=== PATIENT | male | born 1960 | race Caucasian/White ===

== ENCOUNTER 2021-02-25 16:38 | Inpatient (IN) | payer BC ==
--- NOTE | 2021-02-25 17:03 | ED ---
General Adult HPI - General Chief complaint: Abdominal Pain Stated complaint: kidney stone Time Seen by Provider: 02/25/21 17:02 Source: patient Mode of arrival: ambulatory Limitations: no limitations - History of Present Illness Initial comments: Patient presents to the ED complaining of having left flank pain radiating to the left side of his abdomen since yesterday. Patient states that his pain has become worse today, and he states that he has had associated hematuria, nausea and vomiting today. Patient states that he has a history of renal stones, but he has not passed a stone in over 20 years. Patient denies trauma or injury, fever or chills, headache, focal neuro deficit, chest pain, dyspnea, dizziness, diarrhea or constipation, bloody or melanotic stool, hematemesis, dysuria, urinary frequency, leg pain/numbness/weakness, incontinence or urinary retention, or any other symptoms or complaints. Patient states that he took a dose of Excedrin prior to coming to the ED today. - Related Data Home Medications Medication Instructions Recorded Confirmed No Known Home Medications 02/25/21 02/25/21 Allergies Allergy/AdvReac Type Severity Reaction Status Date / Time No Known Allergies Allergy Verified 02/25/21 18:18 Review of Systems ROS Statement: Those systems with pertinent positive or pertinent negative responses have been documented in the HPI. ROS Other: All systems not noted in ROS Statement are negative. Past Medical History Additional Past Medical History / Comment(s): kidney stones History of Any Multi-Drug Resistant Organisms: None Reported Past Surgical History: No Surgical Hx Reported Past Psychological History: No Psychological Hx Reported Smoking Status: Never smoker Past Alcohol Use History: None Reported Past Drug Use History: None Reported General Exam Limitations: no limitations General appearance: alert Head exam: Present: atraumatic, normocephalic Eye exam: Present: normal appearance, EOMI ENT exam: Present: mucous membranes moist Neck exam: Present: other (Trachea is in midline) Respiratory exam: Present: normal lung sounds bilaterally. Absent: respiratory distress, wheezes, rales, rhonchi, stridor Cardiovascular Exam: Present: regular rate, normal rhythm, normal heart sounds, other (Normal radial pulses bilaterally) GI/Abdominal exam: Present: soft. Absent: distended, tenderness, guarding Extremities exam: Absent: tenderness, pedal edema, calf tenderness Back exam: Absent: tenderness, CVA tenderness (R), CVA tenderness (L) Neurological exam: Present: alert, oriented X3, other (Patient has no evidence of lower extremity neurological deficit or saddle anesthesia on examination). Absent: motor sensory deficit Psychiatric exam: Present: normal affect, normal mood Skin exam: Present: warm, dry, intact, normal color Course Vital Signs 02/25/21 02/25/21 17:00 18:53 Temperature 98.0 F Pulse Rate 66 68 Respiratory 22 14 Rate Blood Pressure 189/82 168/85 O2 Sat by Pulse 99 98 Oximetry - Reevaluation(s) Reevaluation #1: 02/25/21 20:01 Case, H&P, test results and ED management thus far were discussed with Dr. Hollins (urologist). He accepts hospital admission. He asks to make the patient NPO after midnight. He has no further recommendations at this time. 02/25/21 20:04 Patient states that his pain has improved with ED treatment. Patient denies development of any new pain or symptoms while in the ED. Patient is aware of his test results and my discussion with Dr. Hollins as above. Patient agrees with hospital admission at this time. Medical Decision Making - Medical Decision Making Patient has a symptomatic left ureteral stone that is causing him significant discomfort. Patient is afebrile and without leukocytosis. Patient's UA is unremarkable. Will admit the patient to the hospital for management of his obstructing left ureteral stone. Dr. Hollins has accepted hospital admission. - Lab Data Result diagrams: 02/25/21 17:20 02/25/21 17:20 Lab Results 02/25/21 02/25/21 02/25/21 Range/Units 17:20 17:20 17:20 WBC 11.1 H (3.8-10.6) k/uL RBC 4.75 (4.30-5.90) m/uL Hgb 14.4 (13.0-17.5) gm/dL Hct 41.7 (39.0-53.0) % MCV 87.8 (80.0-100.0) fL MCH 30.4 (25.0-35.0) pg MCHC 34.6 (31.0-37.0) g/dL RDW 13.0 (11.5-15.5) % Plt Count 196 (150-450) k/uL MPV 6.7 Neutrophils % 75 % Lymphocytes % 16 % Monocytes % 7 % Eosinophils % 1 % Basophils % 0 % Neutrophils # 8.3 H (1.3-7.7) k/uL Lymphocytes # 1.7 (1.0-4.8) k/uL Monocytes # 0.7 (0-1.0) k/uL Eosinophils # 0.1 (0-0.7) k/uL Basophils # 0.0 (0-0.2) k/uL Sodium 141 (137-145) mmol/L Potassium 4.5 (3.5-5.1) mmol/L Chloride 107 (98-107) mmol/L Carbon Dioxide 24 (22-30) mmol/L Anion Gap 10 mmol/L BUN 36 H (9-20) mg/dL Creatinine 2.26 H (0.66-1.25) mg/dL Est GFR (CKD-EPI)AfAm 35 (>60 ml/min/1.73 sqM) Est GFR (CKD-EPI)NonAf 30 (>60 ml/min/1.73 sqM) Glucose 104 H (74-99) mg/dL Calcium 9.1 (8.4-10.2) mg/dL Total Bilirubin 0.5 (0.2-1.3) mg/dL AST 27 (17-59) U/L ALT 20 (4-49) U/L Alkaline Phosphatase 80 (38-126) U/L Total Protein 7.1 (6.3-8.2) g/dL Albumin 4.3 (3.5-5.0) g/dL Lipase 65 (23-300) U/L Urine Color Yellow Urine Appearance Clear (Clear) Urine pH 5.0 (5.0-8.0) Ur Specific [place] 1.025 (1.001-1.035) Urine Protein Negative (Negative) Urine Glucose (UA) Negative (Negative) Urine Ketones Negative (Negative) Urine Blood Negative (Negative) Urine Nitrite Negative (Negative) Urine Bilirubin Negative (Negative) Urine Urobilinogen <2.0 (<2.0) mg/dL Ur Leukocyte Esterase Negative (Negative) - Radiology Data Radiology results: report reviewed (Noncontrast CT abdomen/pelvis: Obstructing calculus (6 mm) proximal left ureter with hydroureter and perinephric edema) Disposition Clinical Impression: Renal insufficiency, Ureterolithiasis Disposition: ADMITTED IP TO THIS HOSP Condition: Stable Is patient prescribed a controlled substance at d/c from ED?: No Referrals: Fran Holt MD [Primary Care Provider] - 1-2 days Time of Disposition: 20:02
[2021-02-25] MEDS ORDERED: ONDANSETRON 4 MG/2 ML VIAL IVP STA (17:06)
[2021-02-25] MEDS ORDERED: HYDROmorphone 1 MG/ML 1 ML SYRINGE IVP STA (17:06)
[2021-02-25] MEDS ORDERED: SODIUM CHLORIDE 0.9% 1,000 ML IV STA (17:06)
[2021-02-25 17:30] LABS: Basophils % (A) 0 %; Eosinophils # (A) 0.1 k/uL (0-0.7); Eosinophils % (A) 1 %; HCT 41.7 % (39.0-53.0); HGB 14.4 gm/dL (13.0-17.5); Lymphocytes # (A) 1.7 k/uL (1.0-4.8); Lymphocytes % (A) 16 %; MCH 30.4 pg (25.0-35.0); MCHC 34.6 g/dL (31.0-37.0); MCV 87.8 fL (80.0-100.0); Mean Platelet Volume 6.7; Monocytes # (A) 0.7 k/uL (0-1.0); Monocytes % (A) 7 %; Neutrophils # (A) 8.3 k/uL (1.3-7.7); Neutrophils % (A) 75 %; Platelet Count 196 k/uL (150-450); RBC 4.75 m/uL (4.30-5.90); WBC 11.1 k/uL (3.8-10.6)
[2021-02-25 17:38] LABS: Appearance,Urine Clear (Clear); Bilirubin,Urine Negative (Negative); Blood,Urine Negative (Negative); Color,Urine Yellow; Glucose,Urine (UA) Negative (Negative); Ketones,Urine Negative (Negative); Leukocyte Esterase,Urine Negative (Negative); Nitrite,Urine Negative (Negative); Protein,Urine Negative (Negative); Specific Gravity,Urine 1.025 (1.001-1.035); Urobilinogen,Urine <2.0 mg/dL (<2.0)
[2021-02-25 17:40] LABS: Albumin 4.3 g/dL (3.5-5.0); Calcium 9.1 mg/dL (8.4-10.2); Potassium 4.5 mmol/L (3.5-5.1); Total Bilirubin 0.5 mg/dL (0.2-1.3); Total Protein 7.1 g/dL (6.3-8.2)
--- NOTE | 2021-02-25 18:38 | CT ---
EXAMINATION TYPE: CT abdomen pelvis wo con DATE OF EXAM: 02/25/2021 COMPARISON: None HISTORY: left flank pain CT DLP: 465.2 mGycm Automated exposure control for dose reduction was used. Images obtained from the diaphragm to the floor the pelvis with no contrast. Lung bases are clear of consolidation. There is no pleural effusion. There is no pericardial effusion . Liver spleen stomach pancreas gallbladder appear normal. The bile ducts are not dilated. There is no adrenal mass. There is left-sided hydronephrosis and perinephric edema. There is a 6 mm o bstructing calculus proximal left ureter with periureteral edema. There are multiple bilateral renal calculi that measure up to almost 10 mm. There is no hydronephrosis on the right side. There is no re troperitoneal adenopathy. The bladder distends smoothly. There is mild prostate calcification. There is no inguinal hernia. There is no free fluid in the pelvis. There are multiple sigmoid diverticula. There is no diverticulitis. There is no mesenteric edema. There is no ascites or free air. There is no evidence of a bowel obstru ction. There is some retained fecal material in the large bowel and also in the distal ileum. Appendi x is not clearly seen. There is no evidence of appendicitis. The lumbar vertebra have normal alignment. There is narrowing of L5-S1 disc space. There is no compre ssion fracture. Bony pelvis is intact. The hip joints are intact. There is no hip dysplasia. IMPRESSION: Obstructing calculus proximal left ureter with hydronephrosis and perinephric edema. Numerous bilateral renal calculi. Mild sigmoid diverticulosis.
[2021-02-25] MEDS ORDERED: HYDROmorphone 0.5 MG/0.5 ML SYRINGE IVP STA ×2 (19:55)
[2021-02-25] MEDS ORDERED: HYDROmorphone 0.5 MG/0.5 ML SYRINGE IVP PRN (20:02)
[2021-02-25] MEDS ORDERED: NALOXONE 0.4 MG/ML 1 ML VIAL IV PRN (20:02)
[2021-02-25] MEDS ORDERED: ONDANSETRON 4 MG/2 ML VIAL IVP PRN (20:02)
[2021-02-25] MEDS: HYDROmorphone 0.5 MG/0.5 ML SYRINGE IVP PRN (22:56)
[2021-02-26] MEDS: HYDROmorphone 0.5 MG/0.5 ML SYRINGE IVP PRN ×3 (01:46→07:15)
[2021-02-26 08:55] LABS: African American GFR (CKD) 50 (>60 ml/min/1.73 sqM); Anion Gap 6 mmol/L; Blood Urea Nitrogen 28 mg/dL (9-20); Calcium 8.8 mg/dL (8.4-10.2); Carbon Dioxide 24 mmol/L (22-30); Chloride 107 mmol/L (98-107); Glucose 112 mg/dL (74-99); Non-African American GFR(CKD) 43 (>60 ml/min/1.73 sqM); Potassium 4.8 mmol/L (3.5-5.1); Sodium 137 mmol/L (137-145)
--- NOTE | 2021-02-26 09:24 | P.GSHP ---
History of Present Illness H&P Date: 02/26/21 Chief Complaint: Left renal colic The patient is a 60-year-old white male with a history of urolithiasis in the remote past. Beginning 02/24/2021 he experienced left flank pain radiating to the left abdomen. He has also noted gross hematuria, nausea, and vomiting. Computed tomography scan shows mild left hydronephrosis due to a 6 mm left proximal ureteral calculus. 4 additional small left renal calculi are seen, all in the upper-mid pole. There are 3 right renal calculi, the largest being a 1 cm right lower pole renal calculus. - Gastrointestinal Gastrointestinal: Reports nausea, Reports vomiting - Genitourinary (Male) Genitourinary: Reports flank pain, Reports hematuria, Reports kidney stones Past Medical History Additional Past Medical History / Comment(s): kidney stones History of Any Multi-Drug Resistant Organisms: None Reported Past Surgical History: No Surgical Hx Reported Past Psychological History: No Psychological Hx Reported Smoking Status: Never smoker Past Alcohol Use History: None Reported Past Drug Use History: None Reported Medications and Allergies Home Medications Medication Instructions Recorded Confirmed Type No Known Home Medications 02/25/21 02/25/21 History Allergies Allergy/AdvReac Type Severity Reaction Status Date / Time No Known Allergies Allergy Verified 02/25/21 18:18 Surgical - Exam Vital Signs Temp Pulse Resp BP Pulse Ox 98.0 F 66 22 189/82 99 02/25/21 17:00 02/25/21 17:00 02/25/21 17:00 02/25/21 17:00 02/25/21 17:00 - General well developed, well nourished, no distress - Neck no masses, trachea midline - Respiratory normal respiratory effort - Abdomen Abdomen: soft, tender (Mild left-sided tenderness), no masses, no guarding, no rigid, no rebound - Genitourinary normal penis with no external lesions, testicles non-tender - Psychiatric oriented to time, oriented to person, oriented to place, speech is normal, memory intact Results - Labs 02/25/21 17:20 02/26/21 07:57 Abnormal Lab Results - Last 24 Hours (Table) 02/25/21 02/25/21 Range/Units 17:20 17:20 WBC 11.1 H (3.8-10.6) k/uL Neutrophils # 8.3 H (1.3-7.7) k/uL BUN 36 H (9-20) mg/dL Creatinine 2.26 H (0.66-1.25) mg/dL Glucose 104 H (74-99) mg/dL Diabetes panel 02/25/21 Range/Units 17:20 Sodium 141 (137-145) mmol/L Potassium 4.5 (3.5-5.1) mmol/L Chloride 107 (98-107) mmol/L Carbon Dioxide 24 (22-30) mmol/L BUN 36 H (9-20) mg/dL Creatinine 2.26 H (0.66-1.25) mg/dL Glucose 104 H (74-99) mg/dL Calcium 9.1 (8.4-10.2) mg/dL AST 27 (17-59) U/L ALT 20 (4-49) U/L Alkaline Phosphatase 80 (38-126) U/L Total Protein 7.1 (6.3-8.2) g/dL Albumin 4.3 (3.5-5.0) g/dL Calcium panel 02/25/21 Range/Units 17:20 Calcium 9.1 (8.4-10.2) mg/dL Albumin 4.3 (3.5-5.0) g/dL Pituitary panel 02/25/21 Range/Units 17:20 Sodium 141 (137-145) mmol/L Potassium 4.5 (3.5-5.1) mmol/L Chloride 107 (98-107) mmol/L Carbon Dioxide 24 (22-30) mmol/L BUN 36 H (9-20) mg/dL Creatinine 2.26 H (0.66-1.25) mg/dL Glucose 104 H (74-99) mg/dL Calcium 9.1 (8.4-10.2) mg/dL Adrenal panel 02/25/21 Range/Units 17:20 Sodium 141 (137-145) mmol/L Potassium 4.5 (3.5-5.1) mmol/L Chloride 107 (98-107) mmol/L Carbon Dioxide 24 (22-30) mmol/L BUN 36 H (9-20) mg/dL Creatinine 2.26 H (0.66-1.25) mg/dL Glucose 104 H (74-99) mg/dL Calcium 9.1 (8.4-10.2) mg/dL Total Bilirubin 0.5 (0.2-1.3) mg/dL AST 27 (17-59) U/L ALT 20 (4-49) U/L Alkaline Phosphatase 80 (38-126) U/L Total Protein 7.1 (6.3-8.2) g/dL Albumin 4.3 (3.5-5.0) g/dL - Imaging CT scan - abdomen: report reviewed, image reviewed Assessment and Plan (1) Ureterolithiasis Current Visit: Yes Status: Acute Code(s): N20.1 - CALCULUS OF URETER SNOMED Code(s): 91209206 (2) Hydronephrosis with renal and ureteral calculous obstruction Current Visit: Yes Status: Acute Code(s): N13.2 - HYDRONEPHROSIS WITH RENAL AND URETERAL CALCULOUS OBSTRUCTION SNOMED Code(s): 159207260 (3) Calculus of kidney Current Visit: Yes Status: Acute Code(s): N20.0 - CALCULUS OF KIDNEY SNOMED Code(s): 71851311 Plan: The patient is a 60-year-old white male with a history of urolithiasis. He now presents with left renal colic due to a 6 mm left proximal ureteral calculus, causing mild left hydronephrosis. He was admitted for management of intractable pain. I intend to perform cystoscopy with left ureteral stent insertion to relieve the obstruction. Arrangements will then be made for him to electively undergo removal of the left ureteral calculus. The rationale for this approach has been reviewed in detail with the patient. Potential risks have been explained, which include anesthesia, infection, inability to successfully place a stent, and ureteral injury. He will subsequently be discharged home, and arrangements will be made for him to undergo cystoscopy, left ureteral stent removal, left ureteroscopy with laser lithotripsy in 2-3 weeks. Time with Patient: Greater than 30
[2021-02-26] MEDS ORDERED: LACTATED RINGERS 1,000 ML IV ONE (09:36)
[2021-02-26 09:42] LABS: Basophils % (A) 0 %; Eosinophils % (A) 0 %; HCT 40.2 % (39.0-53.0); HGB 13.1 gm/dL (13.0-17.5); Lymphocytes # (A) 0.9 k/uL (1.0-4.8); Lymphocytes % (A) 10 %; MCH 29.1 pg (25.0-35.0); MCHC 32.7 g/dL (31.0-37.0); MCV 89.2 fL (80.0-100.0); Mean Platelet Volume 7.1; Monocytes # (A) 0.5 k/uL (0-1.0); Monocytes % (A) 5 %; Neutrophils # (A) 7.5 k/uL (1.3-7.7); Neutrophils % (A) 83 %; Platelet Count 171 k/uL (150-450); RBC 4.51 m/uL (4.30-5.90); RDW 13.2 % (11.5-15.5); WBC 9.1 k/uL (3.8-10.6)
[2021-02-26] MEDS ORDERED: PROPOFOL 10 MG/ML 20 ML VIAL IV ONE (09:52)
[2021-02-26] MEDS ORDERED: LIDOCAINE 1% INJ 10MG/ML (20 ML MDV) ONE (09:52)
[2021-02-26] MEDS ORDERED: MIDAZOLAM 2 MG/2 ML VIAL ONE (09:52)
[2021-02-26] MEDS ORDERED: DEXAMETHASONE SOD PHOSPHATE 10 MG/ML 1 ML VIAL ONE (09:52)
[2021-02-26] MEDS ORDERED: ONDANSETRON 4 MG/2 ML VIAL ONE (09:52)
[2021-02-26] MEDS ORDERED: fentaNYL (PF) 50 MCG/ML 2 ML AMP ONE (09:52)
[2021-02-26] MEDS ORDERED: SUCCINYLCHOLINE CHLORIDE 100 MG/5 ML SYR IV ONE (09:52)
[2021-02-26] MEDS ORDERED: HYDROcodone/APAP 5-325MG 1 EACH TAB PO PRN ×2 (10:37)
--- NOTE | 2021-02-26 10:41 | P.OP ---
Date of Procedure: 02/26/21 Preoperative Diagnosis: Left ureteral calculus Postoperative Diagnosis: Same Procedure(s) Performed: Cystoscopy, left ureteral stent insertion Anesthesia: APARNA Surgeon: Anthony Hollins Estimated Blood Loss (ml): 0 IV fluids (ml): 100 Pathology: none sent Condition: stable Disposition: PACU Indications for Procedure: The patient is a 60-year-old white male with a history of urolithiasis in the remote past. Beginning 02/24/2021 he experienced left flank pain radiating to the left abdomen. He has also noted gross hematuria, nausea, and vomiting. Computed tomography scan shows mild left hydronephrosis due to a 6 mm left proximal ureteral calculus. 4 additional small left renal calculi are seen, all in the upper-mid pole. There are 3 right renal calculi, the largest being a 1 cm right lower pole renal calculus. Operative Findings: Successful stent placement. Description of Procedure: The patient was taken to the operating room and placed in the dorsolithotomy position, with legs supported in Dre stirrups. The external genitalia was prepped and draped sterilely. The 30 lens was used to introduce the 22-Argentine Stortz cystoscopic sheath through the urethra and into the bladder under direct vision. The prostatic urethra showed evidence of mild lateral lobe enlargement. The bladder was examined in its entirety. Both ureteral orifices were of normal anatomic location and configuration, and clear urine effluxed from both. No tumors or foreign bodies were seen. An angle-tip 0.035 inch Glidewire was passed through the cystoscope. The left ureteral orifice was cannulated, and the Glidewire was slowly advanced beyond the calculus and up to the renal pelvis. A 24 cm, 6-Argentine double-J ureteral stent was placed over the wire. Proper stent positioning was verified fluoroscopically and endoscopically. There was evidence of a "hydronephrotic esteban", as clear urine drained through the stent. The bladder was emptied and the cystoscope removed. The patient tolerated the procedure well was taken to the recovery room in stable condition.
[2021-02-26] MEDS: DEXTROSE 5%-0.45% NACL 1,000 ML IV SCH (15:46)
[2021-02-27] MEDS: DEXTROSE 5%-0.45% NACL 1,000 ML IV SCH (05:17)
[2021-02-27 07:39] VITALS: BP 142/75; PULSE 65; RESP 17; TEMP 98.2
--- NOTE | 2021-02-27 10:19 | FL ---
Fluoroscopy HISTORY: Stent placement 9 seconds fluoroscopy time supplied to the referring clinician. 1 intraoperative C-arm images docume nt the procedure. See dictated report from urology.
--- NOTE | 2021-02-27 11:30 | P.DS ---
Providers Date of admission: 02/25/21 20:02 Expected date of discharge: 02/27/21 Attending physician: Anthony Hollins Primary care physician: Fran Holt - Discharge Diagnosis(es) (1) Ureterolithiasis Current Visit: Yes Status: Acute (2) Hydronephrosis with renal and ureteral calculous obstruction Current Visit: Yes Status: Acute (3) Calculus of kidney Current Visit: Yes Status: Acute Hospital Course: Upon admission, the patient was treated with parenteral analgesics and antibiotics. He underwent left ureteral stent insertion on 02/26/2021. He felt considerably better following that procedure. At the time of discharge, he was quite comfortable. Procedures: Cystoscopy, left ureteral stent insertion on 02/26/2021 Patient Condition at Discharge: Good Plan - Discharge Summary New Discharge Prescriptions: No Action No Known Home Medications Discharge Medication List No Known Home Medications 02/25/21 [History] Follow up Appointment(s)/Referral(s): Fran Holt MD [Primary Care Provider] - 1-2 days Activity/Diet/Wound Care/Special Instructions: Diet as tolerated. Activity as tolerated. Dr. Hollins' office will contact patient regarding follow-up. Discharge Disposition: HOME SELF-CARE
== END 2021-02-27 12:46 | disposition home or self-care (01) | DRG 661 ==
LOC: EC 16:38 → 4SSUR 20:02
PROVIDERS: ADMIT Urology; ATTEND Urology
PROC: 0T9B80Z Drainage of Bladder with Drainage Device, Via Natural or Artificial Opening Endoscopic (ICD-10-PCS; 2021-02-26)
PROC: 0T778DZ Dilation of Left Ureter with Intraluminal Device, Via Natural or Artificial Opening Endoscopic (ICD-10-PCS; principal; 2021-02-26 09:00)
DX: N13.2 Hydronephrosis with renal and ureteral calculous obstruction (principal); R31.0 Gross hematuria; Z87.442 Personal history of urinary calculi
CPT/HCPCS: 36415; 74176; 80048; 80053; 81003; 83690; 85025; 96374; 96375; 99285

== ENCOUNTER 2021-03-11 07:02 | Day surgery (SDC) | payer BC ==
--- NOTE | 2021-03-03 17:22 | P.GSHP ---
History of Present Illness H&P Date: 03/03/21 Chief Complaint: Left renal colic The patient is a 60-year-old white male with a history of urolithiasis in the remote past. Beginning 02/24/2021 he experienced left flank pain radiating to the left abdomen. He has also noted gross hematuria, nausea, and vomiting. CT scan showed mild left hydronephrosis due to a 6 mm left proximal ureteral calculus. 4 additional small left renal calculi were seen, all in the upper-mid pole. There are 3 right renal calculi, the largest being a 1 cm right lower pole renal calculus. He underwent left ureteral stent insertion on 02/26/2021. He now comes for cystoscopy, left ureteral stent removal, left ureteroscopy with Holmium laser lithotripsy and possible stone basketing. - Gastrointestinal Gastrointestinal: Reports nausea, Reports vomiting - Genitourinary (Male) Genitourinary: Reports flank pain, Reports hematuria, Reports kidney stones Past Medical History Additional Past Medical History / Comment(s): kidney stones History of Any Multi-Drug Resistant Organisms: None Reported Past Surgical History: No Surgical Hx Reported Past Psychological History: No Psychological Hx Reported Smoking Status: Never smoker Past Alcohol Use History: None Reported Past Drug Use History: None Reported Medications and Allergies Home Medications Medication Instructions Recorded Confirmed Type No Known Home Medications 02/25/21 02/25/21 History Allergies Allergy/AdvReac Type Severity Reaction Status Date / Time No Known Allergies Allergy Verified 02/25/21 18:18 Surgical - Exam - General well developed, well nourished, no distress - Neck no masses, trachea midline - Respiratory normal respiratory effort - Abdomen Abdomen: soft, non tender, no guarding, no rigid, no rebound - Genitourinary normal penis with no external lesions, testicles non-tender - Psychiatric oriented to time, oriented to person, oriented to place, speech is normal, memory intact Results - Imaging CT scan - abdomen: report reviewed, image reviewed Assessment and Plan (1) Ureterolithiasis Status: Acute Code(s): N20.1 - CALCULUS OF URETER SNOMED Code(s): 09908796 (2) Calculus of kidney Status: Acute Code(s): N20.0 - CALCULUS OF KIDNEY SNOMED Code(s): 93800475 Plan: Cystoscopy, left ureteral stent removal, left ureteroscopy with Holmium laser lithotripsy and possible stone basketing. The procedure has been reviewed in detail with the patient. He has been made aware of potential risks, which inc lude anesthesia, bleeding, infection, and ureteral injury.
[2021-03-09 13:36] VITALS: BMI 24.3
[~2021-03-11 07:02] MED LIST: DEXAMETHASONE SOD PHOSPHATE 4 MG/ML 1 ML VIAL IV ONE; HYDROmorphone 0.5 MG/0.5 ML SYRINGE IVP PRN; LACTATED RINGERS 1,000 ML IV SCH; MIDAZOLAM 2 MG/2 ML VIAL IV PRN; ONDANSETRON 4 MG/2 ML VIAL IVP ONE; SCOPOLAMINE 1.5MG/72HR PATCH TRANSDERM ONE
--- NOTE | 2021-03-11 07:29 | XR ---
EXAMINATION TYPE: XR KUB DATE OF EXAM: 03/11/2021 7:14 AM CLINICAL HISTORY: Kidney stones TECHNIQUE: Single supine KUB image of the abdomen is obtained. COMPARISON: CT 02/25/2021 FINDINGS: Scattered gas is seen in non-distended small bowel loops. Gas and fecal material is seen in non-distended colon. A left ureteral stent is present. Bowel contents obscure the renal shadows. IMPRESSION: A left ureteral stent is present. Bowel contents obscure the renal shadows.
[2021-03-11] MEDS ORDERED: PROPOFOL 10 MG/ML 20 ML VIAL IV ONE (10:52)
[2021-03-11] MEDS ORDERED: KETOROLAC 15 MG/ML 1 ML VIAL ONE (10:52)
[2021-03-11] MEDS ORDERED: fentaNYL (PF) 50 MCG/ML 2 ML AMP ONE (10:52)
[2021-03-11] MEDS ORDERED: LIDOCAINE 1% INJ 10MG/ML (20 ML MDV) ONE (10:52)
[2021-03-11] MEDS ORDERED: MIDAZOLAM 2 MG/2 ML VIAL ONE (10:52)
--- NOTE | 2021-03-11 12:53 | P.OP ---
Date of Procedure: 03/11/21 Preoperative Diagnosis: Left ureteral calculus, left renal calculi Postoperative Diagnosis: Same Procedure(s) Performed: Cystoscopy, left ureteroscopy with Holmium laser lithotripsy and stone basketing, left ureteral stent change Anesthesia: IZAIAHA Surgeon: Anthony Hollins Estimated Blood Loss (ml): 20 IV fluids (ml): 500 Pathology: other (Calculus fragments, sent for chemical analysis) Condition: stable Disposition: PACU Indications for Procedure: The patient is a 60-year-old white male with a history of urolithiasis in the remote past. Beginning 02/24/2021 he experienced left flank pain radiating to the left abdomen. He has also noted gross hematuria, nausea, and vomiting. CT scan showed mild left hydronephrosis due to a 6 mm left proximal ureteral calculus. 4 additional small left renal calculi were seen, all in the upper-mid pole. There are 3 right renal calculi, the largest being a 1 cm right lower pole renal calculus. He underwent left ureteral stent insertion on 02/26/2021. He now comes for cystoscopy, left ureteral stent removal, left ureteroscopy with Holmium laser lithotripsy and possible stone basketing. Operative Findings: Excellent fragmentation of left ureteral calculus and left renal calculi, with fragments successfully basketed. Description of Procedure: The patient was taken to the operating room and placed in the dorsolithotomy position, with legs supported in Dre stirrups. The external genitalia was prepped and draped sterilely. The 30 lens was used to introduce the 21-[place] cystoscopic sheath through the urethra and into the bladder under direct vision. The prostatic urethra showed evidence of mild lateral lobe enlargement. The bladder was examined in its entirety. The distal end of the left ureteral stent was grasped with grasping forceps and removed along with the cystoscope. A 0.038 inch Glidewire was passed through the stent and up to the left renal pelvis. An 11/13-St Lucian ureteral access catheter was passed over the wire, up to the proximal ureter. The flexible ureteroscope was then passed through the ureteral access catheter sheath, up to the stone. The 272 micron Holmium laser probe was passed through the ureteroscope, and lithotripsy was performed. The calculus was very dense, likely composed of calcium oxalate monohydrate. After fragmenting this, the ureteroscope was advanced up to the kidney. Each calyx was examined. Calculi were identified within an upper pole calyx, mid pole calyx, and lower pole calyx. All calculi were fragmented. While fragmenting the lower pole calculus, bleeding occurred which limited visualization. Fortunately, fragmentation of the calculi was complete. A 1.9-St Lucian nitinol basket was used to remove the calculus fragments from the ureter and kidney. They were saved and sent for chemical analysis. By the completion of the procedure, bleeding had essentially subsided. There were several small clots within the renal pelvis and ureter, most of which were removed via basketing. The Glidewire was passed through the ureteral access catheter sheath and up to the left renal pelvis. The ureteral access catheter sheath was removed, and the Glidewire was backloaded into the cystoscope, which was passed into the bladder. A 24 cm, 4.8-St Lucian double-J ureteral stent was placed over the wire. Proper stent positioning was verified fluoroscopically and endoscopically. A string was left attached to the stent, this was secured to the penis using a Tegaderm dressing. The patient tolerated the procedure well and was taken to the recovery room in stable condition. [facility] [place] [facility] [place] Procedure Acuity: Elective Stone Size and Location: 6 mm, left proximal ureter Ureteral Dilation: No Ureteral Access Sheath Used: Yes Stone Sent for Analysis: Yes All Stones/Fragments Were Removed with a Basket: Yes Complications: No Preoperative Antibiotics Given: Yes Stent Placed: Yes If Stent Placed, Was String Left Attached: Yes If Stent Placed, When is it to be Removed: 3-5 days Discharge Medications: None
[2021-03-11 12:54] VITALS: TEMP 97
--- NOTE | 2021-03-11 13:14 | FL ---
Fluoroscopy HISTORY: Cystoscopy and stent placement 19 seconds fluoroscopy time supplied to the referring clinician. 3 intraoperative C-arm images docum ent the procedure. See dictated report from urology.
[2021-03-11] MEDS ORDERED: LACTATED RINGERS 1,000 ML IV ONE (13:28)
[2021-03-11 13:47] VITALS: RESP 18
[2021-03-11 14:28] VITALS: BP 148/75; PULSE 79
== END 2021-03-11 14:45 | disposition home or self-care (01) ==
LOC: OR 07:02
PROVIDERS: ATTEND Urology
DX: N13.2 Hydronephrosis with renal and ureteral calculous obstruction (principal)
CPT/HCPCS: 82365; 74018; 52356; C2625; C1769; J2250; J1100; J2405; J0690; J2001; J3010; J1885; J2704; J1170

== ENCOUNTER → 2022-02-02 | Outpatient (CLI) | payer BC ==
--- NOTE | 2022-02-02 14:20 | XR ---
EXAMINATION TYPE: XR [facility] DATE OF EXAM: 02/02/2022 Comparison: 03/11/2021 Clinical History: 61-year-old male left kidney stone, left flank pain, nausea, N20.0 Calculus of kidn ey Findings: Right-sided renal calculus measuring 1 cm. Possible second upper pole right-sided calculus measuring 4 mm. Previous left-sided ureteral stent has been removed. Mild multilevel degenerative disc disease. Mild degenerative change SI joints. No additional definite suspicious calcification seen. Nonobstruc tive bowel gas pattern. Mild stool burden. Impression: Suggestion of a couple right-sided renal calculi measuring 10 mm and 4 mm.
== END | disposition home or self-care (01) ==
LOC: RADXRMAIN 09:11
PROVIDERS: ATTEND Urology
DX: R10.9 Unspecified abdominal pain (principal); R11.0 Nausea
CPT/HCPCS: 74018

== ENCOUNTER 2022-03-10 19:02 | Emergency (ER) | payer BC ==
[2022-03-10 19:22] VITALS: BP 160/77; PULSE 58; RESP 18; TEMP 97.8
--- NOTE | 2022-03-10 19:47 | ED ---
Male Urogenital HPI - General Chief complaint: Urogenital Stated complaint: Kidney stone Time Seen by Provider: 03/10/22 19:32 Source: patient Mode of arrival: ambulatory - History of Present Illness Initial comments: Patient is a 61-year-old male with a past medical history of kidney stones who presents to the emergency department with a chief complaint of right back pain. Patient states he had an episode of severe right back pain with radiation to the right groin that lasted for about one hour. It was associated with nausea and vomiting. Patient states on the way to the emergency department the pain and nausea subsided completely. Patient did notice some blood in his urine earlier today. States the pain does feel like a kidney stone. He denies fever, chills, shortness of breath, chest pain, burning with urination, and other concerns. Patient does have history of left ureter stenting and lithotripsy with Dr. Beaulieu. He denies back injury. Denies pain, numbness, and tingling in the bilateral legs and groin/buttock region. Denies loss of bowel and bladder function. - Related Data Home Medications Medication Instructions Recorded Confirmed No Known Home Medications 02/25/21 03/09/21 Allergies Allergy/AdvReac Type Severity Reaction Status Date / Time Penicillins Allergy Unknown Verified 03/10/22 19:22 Review of Systems ROS Statement: Those systems with pertinent positive or pertinent negative responses have been documented in the HPI. ROS Other: All systems not noted in ROS Statement are negative. Past Medical History Additional Past Medical History / Comment(s): kidney stones History of Any Multi-Drug Resistant Organisms: None Reported Past Surgical History: No Surgical Hx Reported Additional Past Surgical History / Comment(s): cystoscopy left ureteral stent placement Past Anesthesia/Blood Transfusion Reactions: No Reported Reaction Past Psychological History: No Psychological Hx Reported Smoking Status: Never smoker Past Alcohol Use History: None Reported Past Drug Use History: None Reported - Past Family History Mother Family Medical History: No Reported History General Exam General appearance: alert, in no apparent distress Head exam: Present: atraumatic, normocephalic, normal inspection Eye exam: Present: normal appearance, PERRL, EOMI. Absent: scleral icterus, conjunctival injection, periorbital swelling Respiratory exam: Present: normal lung sounds bilaterally. Absent: respiratory distress, wheezes, rales, rhonchi, stridor Cardiovascular Exam: Present: regular rate, normal rhythm, normal heart sounds. Absent: systolic murmur, diastolic murmur, rubs, gallop, clicks GI/Abdominal exam: Present: soft, normal bowel sounds. Absent: distended, tenderness, guarding, rebound, rigid Back exam: Present: normal inspection, full ROM. Absent: CVA tenderness (R), CVA tenderness (L), paraspinal tenderness, vertebral tenderness Neurological exam: Present: alert, oriented X3, CN II-XII intact Psychiatric exam: Present: normal affect, normal mood Skin exam: Present: warm, dry, intact, normal color. Absent: rash Course Vital Signs 03/10/22 19:19 Temperature 97.8 F Pulse Rate 58 L Respiratory 18 Rate Blood Pressure 160/77 O2 Sat by Pulse 100 Oximetry Medical Decision Making - Medical Decision Making This is a 61-year-old male who presents after episode of right back and groin pain. Thorough history and examination were performed. Patient is well- appearing. Denies any pain now. The abdomen is soft and nontender. There is no CVA tenderness. There is no paravertebral or vertebral tenderness. I did review patient's last KUB x-ray from January of 2022. This shows suggestion of a couple right-sided renal calculi measuring 10 mm and 4 mm. this was discussed with patient. Patient informed that he may have passed the stone or the pain may come back while the stone is moving down urinary tract. Patient states he feels completely better and he declined testing at this time. He declines laboratory studies and imaging. Patient will follow up with his urologist. Return parameters discussed. He verbalizes understanding. Dr. Swartz is my attending. Disposition Clinical Impression: Right-sided back pain, Right groin pain, Nausea and vomiting Disposition: HOME SELF-CARE Condition: Good Instructions (If sedation given, give patient instructions): Kidney Stones (ED) Additional Instructions: Please follow up with Dr. Hollins one to 2 days. Return to the emergency department if you experience new, concerning, or worsening symptoms. Is patient prescribed a controlled substance at d/c from ED?: No Referrals: Fran Holt MD [Primary Care Provider] - 1-2 days
== END 2022-03-10 19:59 | disposition home or self-care (01) ==
LOC: EC 19:02
DX: R10.31 Right lower quadrant pain (principal); R11.2 Nausea with vomiting, unspecified; M54.9 Dorsalgia, unspecified; Z88.0 Allergy status to penicillin
CPT/HCPCS: 99283